=== PATIENT | female | born 1990 | race Two or more races ===

== ENCOUNTER 2022-04-07 19:21 | Emergency (ER) | payer OTHER ==
[~2022-04-07] VITALS: Ht 157.5 cm; Wt 108.9 kg
== END 2022-04-07 23:44 | disposition home or self-care (01) ==
LOC: ER 19:21
DX: A08.4 Viral intestinal infection, unspecified (principal)

== ENCOUNTER 2022-06-04 13:51 | Emergency (ER) | payer OTHER ==
[~2022-06-04] VITALS: Ht 157.5 cm; Wt 117.9 kg
[2022-06-04] MEDS ORDERED: PEPCID AC20 MG (14:17)
== END 2022-06-04 23:18 | disposition home or self-care (01) ==
LOC: ER 13:51
DX: K29.70 Gastritis, unspecified, without bleeding (principal)

== ENCOUNTER 2022-08-12 14:27 | Emergency (ER) | payer OTHER ==
[~2022-08-12] VITALS: Ht 157.5 cm; Wt 113.4 kg
[~2022-08-12 14:27] MED LIST: PEPCID AC20 MG
== END 2022-08-12 17:40 | disposition home or self-care (01) ==
LOC: ER 14:27
DX: M54.42 Lumbago with sciatica, left side (principal); Z91.041 Radiographic dye allergy status

== ENCOUNTER → 2022-12-09 | Emergency (ER) | payer OTHER | END | disposition left against medical advice (07) | LOC: ER 16:32 | DX: Z53.21 Procedure and treatment not carried out due to patient leaving prior to being seen by health care provider (principal) ==